=== PATIENT | male | born 1970 | race Caucasian/White ===

== ENCOUNTER 2022-10-06 08:11 | Emergency (ER) | payer SELFPAY ==
--- NOTE | 2022-10-06 08:29 | W.ED.NEUROSD ---
HPI - Neuro Symptoms/Deficit General: Chief Complaint: Neuro Symptoms/Deficit Stated Complaint: lt arm numb, confusion, tiredness Time Seen by Provider: 10/06/22 08:29 History of Present Illness: Mr. Gore is a 52-year-old gentleman presenting the emergency department for strokelike symptoms. He notes onset of symptoms acutely on the evening of 10/03. He had sudden onset of abnormal feeling with vomiting, confusion, possible syncope, and loss of urinary continence. Since that time he has felt generally unwell. He endorses confusion, unsteady gait, left arm sensory changes and left leg pain that he noticed today. Overall course of symptoms has persisted. Intensity is mild to moderate. No other specific changes in health, exacerbating, or alleviating factors identified. Onset (ago): day(s) History of same: No Relieving factors: none Exacerbating factors: none Review of Systems General: Reports: 10 or more systems reviewed and unremarkable except in HPI and below PFSH ED PFSH: Medical History (Updated 10/14/22 @ 00:00 by BROOK Bray) Bradycardia Social History (Updated 10/06/22 @ 08:39 by Amaury Colón MD) Smoking and tobacco status: current every day smoker Physical Exam Const: COMMON NORMALS: patient oriented x3 and alert GENERAL APPEARANCE: cooperative and well developed HENMT: COMMON NORMALS: normocephalic and atraumatic HEAD & SCALP: normocephalic and atraumatic Eye: COMMON NORMALS: conjunctivae normal CONJUNCTIVA: Yes conjunctivae normal SCLERA: sclerae normal Neck/C-Spine: COMMON NORMALS: supple GENERAL: Yes trachea midline Resp: COMMON NORMALS: normal respiratory effort and clear to auscultation bilaterally EFFORT & INSPECTION: Yes able to speak in complete sentences AUSCULTATION: clear to auscultation bilaterally Cardio: COMMON NORMALS: regular rate and regular rhythm RATE: regular rate RHYTHM: regular rhythm GI: COMMON NORMALS: Soft to palpation PALPATION: Yes Soft to palpation and No Tenderness to palpation present (GI) Extremity: GENERAL: Yes normal exam except as noted and No edema Neuro: COMMON NORMALS: patient oriented x3, CN's II-XII intact bilaterally, moves all extremities and no focal motor deficits SENSORIUM/ORIENTATION: Yes alert and No Orientation impaired Psych: COMMON NORMALS: mental status grossly normal and Normal thought process present THOUGHT PROCESS: Normal thought process present Course Vital Signs: Vital signs: Vital Signs Temperature 98.1 F 10/06/22 08:30 Pulse Rate 46 L 10/06/22 11:20 Respiratory Rate 10 L 10/06/22 11:20 Blood Pressure 156/93 10/06/22 11:20 Pulse Oximetry 99 10/06/22 11:20 Oxygen Delivery Me thod Room Air 10/06/22 08:30 MDM - Neuro Symptoms/Deficit Medical Decision Making 52-year-old gentleman presenting due to strokelike symptoms. Subjective sensory changes noted on exam. Patient is nontoxic. Patient is not a tPA candidate given duration of symptoms. EKG demonstrates sinus bradycardia with normal axis and other intervals, no STEMI. Labs with no leukocytosis, normal hemoglobin and platelet count. No acute metabolic abnormalities to explain symptoms. Negative range 2-hour delta troponin. No UTI, hematuria discussed with patient. CT head negative for evidence of stroke or hemorrhage, no masses identified. Patient treated with IV fluids and feels somewhat improved. Exact etiology of symptoms is somewhat unclear. Given duration of symptoms I would have expected plain head CT to show evidence of stroke of central process was responsible. The results of ED evaluation were discussed with the patient including prescriptions and/or symptomatic cares (if applicable) including appropriate and responsible use, followup plan, and return precautions. The patient verbalized understanding and felt safe for discharge. Medical Records I reviewed the patient's medical records. Lab Data I reviewed the patient's lab results. 10/06/22 08:41 10/06/22 08:[address] 10/06/22 08:36 IMPRESSION: NO ACUTE INTRACRANIAL CHANGE MILD ETHMOIDITIS Laboratory Results WBC 7.8 10^3/uL (4.0-10.0) 10/06/22 08:41 RBC 5.39 10^6/uL (4.1-5.3) H 10/06/22 08:41 Hgb 16.2 g/dL (11.7-16.6) 10/06/22 08:41 Hct 48.4 % (42.0-52.0) 10/06/22 08:41 MCV 89.8 fl (80-94) 10/06/22 08:41 MCH 30.1 pg (28.0-34.0) 10/06/22 08:41 MCHC 33.5 g/dL (30.0-36.0) 10/06/22 08:41 RDW 11.9 % (12.1-15.1) L 10/06/22 08:41 Plt Count 275 10^3/cmm (130-400) 10/06/22 08:41 MPV 10.4 fL (7.4-10.4) 10/06/22 08:41 Neut % (Auto) 74.9 % 10/06/22 08:41 Lymph % (Auto) 17.6 % 10/06/22 08:41 [place] % (Auto) 5.6 % 10/06/22 08:41 Eos % (Auto) 1.0 % 10/06/22 08:41 Baso % (Auto) 0.6 % 10/06/22 08:41 Neut # (Auto) 5.85 10^3/uL (1.8-7.7) 10/06/22 08:41 Lymph # (Auto) 1.4 10^3/uL (0.8-4.8) 10/06/22 08:41 [place] # (Auto) 0.4 10^3/uL (0.2-0.9) 10/06/22 08:41 Eos # (Auto) 0.1 10^3/uL (0.0-0.8) 10/06/22 08:41 Baso # (Auto) 0.1 10^3/uL (0.0-0.1) 10/06/22 08:41 Nucleated RBC % (auto) 0 % 10/06/22 08:41 Nucleated RBCs # 0.0 /100WBC 10/06/22 08:41 Sodium 138 mmol/L (136-145) 10/06/22 08:41 Potassium 4.5 mmol/L (3.5-5.1) 10/06/22 08:41 Chloride 104 mmol/L (98-107) 10/06/22 08:41 Carbon Dioxide 24 mmol/L (22-29) 10/06/22 08:41 Anion Gap 14.5 (5-19) 10/06/22 08:41 BUN 9 mg/dL (6-20) 10/06/22 08:41 Creatinine 0.8 mg/dL (0.7-1.2) 10/06/22 08:41 GFR Calculation 101.9 mL/min (90-130) 10/06/22 08:41 Glucose 98 mg/dL (65-115) 10/06/22 08:41 POC Glucose 111 mg/dL (70-110) H 10/06/22 08:46 Calculated Osmolality 285 mOsm/kg (285-295) 10/06/22 08:41 Calcium 9.9 mg/dL (8.5-10.5) 10/06/22 08:41 Total Bilirubin 0.4 mg/dL (0.15-1.2) 10/06/22 08:41 AST 17 U/L (0-40) 10/06/22 08:41 ALT 24 U/L (0-41) 10/06/22 08:41 Alkaline Phosphatase 100 U/L (40-130) 10/06/22 08:41 Troponin T Baseline 10 ng/L (0-15) 10/06/22 08:41 Troponin T 120 Minute 9.42 ng/L (0-15) 10/06/22 10:32 Delta Troponin T -0.58 ABS# (0-10) L 10/06/22 10:32 Total Protein 7.1 g/dL (6.6-8.7) 10/06/22 08:41 Albumin 4.7 g/dL (3.5-5.2) 10/06/22 08:41 Globulin 2.4 g/dL (1.3-4.6) 10/06/22 08:41 TSH 0.94 uIU/mL (0.27-4.20) 10/06/22 08:41 Urine Color Yellow (Yellow) 10/06/22 09:47 Urine Appearance Clear (CLEAR) 10/06/22 09:47 Urine pH 7 (5-7) 10/06/22 09:47 Ur Specific [place] 1.015 (1.005-1.030) 10/06/22 09:47 Urine Protein Neg (Negative) 10/06/22 09:47 Urine Glucose (UA) Norm (Normal) 10/06/22 09:47 Urine Ketones Negative (Negative) 10/06/22 09:47 Urine Blood 2+ (Negative) H 10/06/22 09:47 Urine Nitrate Negative (Negative) 10/06/22 09:47 Urine Bilirubin Neg (Negative) 10/06/22 09:47 Urine Urobilinogen Norm mg/dL (Negative) 10/06/22 09:47 Ur Leukocyte Esterase Negative (Negative) 10/06/22 09:47 Urine RBC 0-4 /hpf (0-2) H 10/06/22 09:47 Urine WBC 0-4 /hpf (0-5) H 10/06/22 09:47 Ur Squamous Epith Cells None /hpf (0-5) 10/06/22 09:47 Amorphous Sediment Not Reportable 10/06/22 09:47 Urine Bacteria None /hpf (NONE) 10/06/22 09:47 Urine Mucus None /hpf 10/06/22 09:47 SARS-CoV-2 Ag (Rapid) Negative (Negative) 10/06/22 09:15 Discharge Plan Discharge Patient Disposition: Home Clinical Impression: Paresthesia, Malaise and fatigue Condition: Stable Prescriptions: No Action aspirin 325 mg Tablet 650 mg PO .ONE TIME DOSE Discharge Orders: Discharge ED (Routine); Ordered 10/06/22 Ordered By: Amaury Colón Other Ambulatory Orders: ECG holter monitor 7 Days (Routine) Timeframe: 3 Days Facility: [facility] - Location: Radiology Ordered By: Amaury Colón Discharge Diet: Usual diet Discharge Activity: Resume usual activity Patient Instructions: Paresthesia (ED), Lightheadedness (ED) Activity Restrictions/Additional Instructions: Thank you for visiting the emergency department. You were seen evaluated for generalized illness and paresthesias. The exact cause of your symptoms is unclear however does not appear to need hospitalization at this time. Please follow-up with your primary care provider. Please ensure that you are resting and staying hydrated. Return to the emergency department for recurrent symptoms, any new neurologic symptoms, or anything else that you are concerned about and feel needs emergency department evaluation Coding Level of Care Code ED Patient Financial Advocate for Zurdo Dumas
[2022-10-06 08:30] VITALS: BP 173/109; PULSE 60; TEMP 36.7; O2SAT 100; BMI 37.4
--- NOTE | 2022-10-06 08:36 | CT_ITS ---
WS: [id number] EXAMINATION: CT head wo con* 12711 REASON FOR EXAM: stroke like symptoms, L arm and leg sensory, unsteady COMPARISON: None available. ORDER DATE: 10/06/2022 8:57 AM TOTAL EXAM DLP: 1160.[address] scans at [facility] use at least one of these dose optimization techniques: automated ex posure control; mA and/or kV adjustment per patient size (includes targeted exams where dose is match ed to clinical indication); or iterative reconstruction. TECHNIQUE: AXIAL IMAGING WITH 2-D REFORMATS WITHOUT CONTRAST FINDINGS: Extra axial spaces: Normal in size and morphology for the patient's age.. Hemorrhage: No evidence of subarachnoid hemorrhage. Ventricular system: Normal in size and morphology for the patient's age.. Basal cisterns: The basilar cisterns are patent.. Cerebral parenchyma: [place]-white matter differentiation is maintained.. Midline shift: No midline shift or mass effect. . Cerebellum: Normal. Brainstem: Normal. ORBITS/FACIAL BONES/OTHER: Calvarium: Intact. Vascular system: Normal. Visualized Paranasal sinuses: Minor generalized mucosal thickening and infiltrate in the posterior et hmoidal sinuses. Visualized Orbits and facial bones: Normal. Visualized upper cervical spine: Normal. Sella and skull base: Grossly intact. CT/CT head wo con* 04016 IMPRESSION: NO ACUTE INTRACRANIAL CHANGE MILD ETHMOIDITIS
--- NOTE | 2022-10-06 08:40 | ECG_ITS ---
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 Measurements Intervals [place] Rate: 53 P: 15 [place]: 195 QRS: 56 QRSD: 93 T: 59 QT: 400 QTc: 377 Interpretive Statements SINUS BRADYCARDIA No previous ECG available for comparison Electronically Signed On 10-06-2022 9:46:41 CDT by Oscar Stover M.D. [email or web address]/[id number]
--- NOTE | 2022-10-06 08:44 | PC.PHAR ---
pt states he takes no rx medications-ext med history doesnt show anything filled-pt states he took a one time dose of aspirin yesterday 10/05/22
[2022-10-06 08:52] LABS: Glucose Point of Care 111 mg/dL (70-110)
[2022-10-06 08:54] LABS: Basophils # 0.1 10^3/uL (0.0-0.1); Basophils % 0.6 %; Eosinophils # 0.1 10^3/uL (0.0-0.8); Hematocrit 48.4 % (42.0-52.0); Hemoglobin 16.2 g/dL (11.7-16.6); Lymphocytes # 1.4 10^3/uL (0.8-4.8); Lymphocytes % 17.6 %; Mean Corpuscular HGB Conc 33.5 g/dL (30.0-36.0); Mean Corpuscular Hemoglobin 30.1 pg (28.0-34.0); Mean Corpuscular Volume 89.8 fl (80-94); Mean Platelet Volume 10.4 fL (7.4-10.4); Monocytes # 0.4 10^3/uL (0.2-0.9); Monocytes % 5.6 %; Neutrophils # 5.85 10^3/uL (1.8-7.7); Neutrophils % 74.9 %; Nucleated Red Blood Cells % 0 %; Platelet Count 275 10^3/cmm (130-400); Red Blood Count 5.39 10^6/uL (4.1-5.3); Red Cell Distribution Width 11.9 % (12.1-15.1); White Blood Count 7.8 10^3/uL (4.0-10.0)
[2022-10-06] MEDS: sodium chloride 0.9% 1,000 ML 999 ML IV (09:08)
[2022-10-06 09:19] LABS: Troponin(5th) Baseline 10 ng/L (0-15)
[2022-10-06 09:26] LABS: Alanine Aminotransferase 24 U/L (0-41); Albumin Level 4.7 g/dL (3.5-5.2); Alkaline Phosphatase 100 U/L (40-130); Anion Gap 14.5 (5-19); Aspartate Amino Transferase 17 U/L (0-40); Blood Urea Nitrogen 9 mg/dL (6-20); Calcium 9.9 mg/dL (8.5-10.5); Carbon Dioxide 24 mmol/L (22-29); Chloride 104 mmol/L (98-107); Globulin 2.4 g/dL (1.3-4.6); Glomerular Filtration Rate 101.9 mL/min (90-130); Glucose 98 mg/dL (65-115); Osmolality Calculated 285 mOsm/kg (285-295); Potassium 4.5 mmol/L (3.5-5.1); Sodium 138 mmol/L (136-145); Thyroid Stimulating Hormone 0.94 uIU/mL (0.27-4.20); Total Bilirubin 0.4 mg/dL (0.15-1.2); Total Protein 7.1 g/dL (6.6-8.7)
[2022-10-06 09:36] VITALS: BP 156/93; PULSE 47; RESP 10; O2SAT 100
[2022-10-06 09:41] VITALS: BP 148/76; BP 156/93; BP 165/95; PULSE 51; PULSE 56; PULSE 61
[2022-10-06 10:07] LABS: Add Urine Microscopic? YES; Bilirubin Urine Neg (Negative); Blood Urine 2+ (Negative); Glucose Urine UA Norm (Normal); Ketones Urine Negative (Negative); Leukocyte Esterase Urine Negative (Negative); Nitrate Urine Negative (Negative); Protein Urine Neg (Negative); Specific Gravity, Urine 1.015 (1.005-1.030); Urine Appearance Clear (CLEAR); Urine Color Yellow (Yellow); Urobilinogen Urine Norm (Negative); pH Urine 7 (5-7)
[2022-10-06 10:10] LABS: RBC Urine 0-4 /hpf (0-2); WBC Urine 0-4 /hpf (0-5)
[2022-10-06 10:11] LABS: Add Urine Culture? No
[2022-10-06 10:15] LABS: SARS Covid-2 Antigen Negative (Negative)
--- NOTE | 2022-10-06 10:48 | ECG_ITS ---
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 Measurements Intervals [place] Rate: 53 P: -1 [place]: 191 QRS: 51 QRSD: 91 T: 56 QT: 414 QTc: 392 Interpretive Statements SINUS BRADYCARDIA Compared to ECG 10/06/2022 08:48:38 No significant changes Electronically Signed On 10-06-2022 12:29:58 CDT by Oscar Stover M.D. [id number]
[2022-10-06 10:54] LABS: Troponin 5 2HR 9.42 ng/L (0-15)
[2022-10-06 11:12] LABS: Troponin 5 2HR Delta -0.58 ABS# (0-10)
[2022-10-06 11:20] VITALS: BP 156/93; PULSE 46; RESP 10; O2SAT 99
--- NOTE | 2022-10-06 14:40 | PC.SOCIAL ---
Addendum entered by Salud Evans 11/09/22 14:48: manager financial received a message from centralized scheduling stating that patient did not want the test scheduled at this time. Original Note: PCP Appt Established at [facility] in [place]; tomorrow at 1040 with YAA Frederick. Echo orders faxed to [facility]. Scheduling at this time with results to YAA Frederick.
== END 2022-10-06 11:21 | disposition home or self-care (01) ==
PROVIDERS: Emergency Provider Emergency Medicine
DX: R20.2 Paresthesia of skin (principal); R53.81 Other malaise; R53.83 Other fatigue; R31.9 Hematuria, unspecified; R00.1 Bradycardia, unspecified
CPT/HCPCS: 36415; 36416; 70450; 80053; 81001; 82962; 84443; 84484; 85025; 87426; 93005; 99285; J7030

== ENCOUNTER 2022-11-01 13:15 | Emergency (ER) | payer SELFPAY ==
[2022-11-01 13:32] VITALS: BP 181/95; PULSE 58; RESP 16; TEMP 36.6; O2SAT 95; BMI 37.4
--- NOTE | 2022-11-01 13:42 | XR_ITS ---
WS: [id number] Exam: XR chest 1V portable [id number] Date/Time of Exam: 11/01/2022 1:44 PM Reason For Exam: chest pain No priors. The lungs are clear and fully expanded. Heart size top limits normal. The mediastinum is normal in co ntour. No pleural effusions. Regional bony elements are intact. XR/XR chest 1V portable [id number] IMPRESSION: 1. No acute cardiopulmonary process.
--- NOTE | 2022-11-01 13:42 | ECG_ITS ---
[facility] Test Date: 2022-11-01 Pat Name: Chava Gore Department: Room: Gender: Male Medical Office Scheduler: : 1970 Requested By: Von Latham Order Number: [id number] Gabriella MD: Hardeep Koo M.D. Measurements Intervals [place] Rate: 58 P: -15 [place]: 181 QRS: 29 QRSD: 96 T: 39 QT: 382 QTc: 377 Interpretive Statements SINUS BRADYCARDIA Compared to ECG 10/06/2022 10:48:03 No significant changes Electronically Signed On 11-01-2022 21:38:36 CDT by Hardeep Koo M.D. [email or web address].[employer]/store/[id number]
[2022-11-01 14:08] VITALS: BP 158/92; PULSE 51; RESP 13; O2SAT 97
--- NOTE | 2022-11-01 14:12 | ED_ITS ---
HPI - Chest Pain General: Chief Complaint: Chest Pain Stated Complaint: sent by dr alvarado/chest pains/seizure 10/29 Time Seen by Provider: 11/01/22 13:42 History of Present Illness: Patient presents to the ER with complaints of seizure at his primary care office clinic on Tuesday. Patient said at that time he had his labs drawn, his heart rate was 38 he had a seizure and lost his bladder. Patient stated since then has been super slow and tired and fatigued he has had chest pains at times it is reproducible with palpation. This pain moves. It hurts to the touch. Patient did start taking 1 baby aspirin since then. Patient has had 2 possible seizures in the past. Patient does not technically have a diagnosis of epilepsy and is not on antiseizure medicine. Patient is not currently having chest pain at this time. Review of Systems General: Reports: 10 or more systems reviewed and unremarkable except in HPI and below PFSH ED PFSH: Medical History Bradycardia Social History Smoking and tobacco status: current every day smoker Physical Exam Const: COMMON NORMALS: no acute distress, average body habitus, patient oriented x3, no limitations, healthy appearing, alert and well nourished HENMT: COMMON NORMALS: normocephalic, atraumatic, hearing grossly normal bilaterally, external ears normal, Normal external nose present and moist oral mucous membranes HEAD & SCALP: normocephalic and atraumatic NOSE: Normal external nose present EXTERNAL EAR: Yes external ears normal Neck/C-Spine: COMMON NORMALS: full ROM, no lymphadenopathy, supple, no meningeal signs, no JVD and Thyroid normal THYROID: Thyroid normal Chest: COMMONS NORMALS: normal inspection of the chest and normal palpation of entire chest wall Resp: COMMON NORMALS: normal respiratory effort, No retractions, No use of acc essory muscles and clear to auscultation bilaterally AUSCULTATION: clear to auscultation bilaterally Cardio: COMMON NORMALS: no JVD, regular rate, regular rhythm, S1 normal heart sound present, No gallops present (Cardio), No clicks present (Cardio) and No murmurs present (Cardio) RATE: regular rate RHYTHM: regular rhythm HEART SOUNDS: S1 normal heart sound present GI: COMMON NORMALS: Normal to inspection, nondistended, normoactive bowel sounds present, Soft to palpation, non-tender and No hepatosplenomegaly present PALPATION: Yes Soft to palpation and Yes No hepatosplenomegaly present Neuro: COMMON NORMALS: patient oriented x3 SENSORIUM/ORIENTATION: Yes alert MENINGEAL SIGNS: Yes no meningeal signs Course Vital Signs: Vital signs: Vital Signs Temperature 97.9 F 11/01/22 13:32 Pulse Rate 57 L 11/01/22 15:30 Respiratory Rate 13 11/01/22 15:30 Blood Pressure 133/80 11/01/22 15:30 Pulse Oximetry 97 11/01/22 15:30 Oxygen Delivery Me thod Room Air 11/01/22 14:08 MDM - Chest Pain Medical Decision Making Patient presents to the ER with complaints of seizure 3 days ago has not felt right since then. Patient has had intermittent left-sided chest pain since then but is not having pain at this time. Patient was worked up in a normal chest pain like fashion along with a prolactin. All of which essentially were benign. Patient did not have chest pain during his time here to ER. Patient will be discharged to follow-up with his primary care practitioner for further evaluation and treatment. Differential Diagnosis Unlikely acute massive pulmonary embolism, acute respiratory failure, acute myocardial infarction, cardiac arrest or sudden cardiac Medical Records I reviewed the patient's medical records. Lab Data I reviewed the patient's lab results. 11/01/22 14:15 11/01/22 14:15 Radiology Impressions Chest X-Ray 11/01/22 13:42 IMPRESSION: 1. No acute cardiopulmonary process. Laboratory Results WBC 6.7 10^3/uL (4.0-10.0) 11/01/22 14:15 RBC 5.01 10^6/uL (4.1-5.3) 11/01/22 14:15 Hgb 15.1 g/dL (11.7-16.6) 11/01/22 14:15 Hct 45.5 % (42.0-52.0) 11/01/22 14:15 MCV 90.8 fl (80-94) 11/01/22 14:15 MCH 30.1 pg (28.0-34.0) 11/01/22 14:15 MCHC 33.2 g/dL (30.0-36.0) 11/01/22 14:15 RDW 12.1 % (12.1-15.1) 11/01/22 14:15 Plt Count 210 10^3/cmm (130-400) 11/01/22 14:15 MPV 10.8 fL (7.4-10.4) H 11/01/22 14:15 Neut % (Auto) 61.8 % 11/01/22 14:15 Lymph % (Auto) 28.0 % 11/01/22 14:15 [place] % (Auto) 7.4 % 11/01/22 14:15 Eos % (Auto) 1.8 % 11/01/22 14:15 Baso % (Auto) 0.9 % 11/01/22 14:15 Neut # (Auto) 4.16 10^3/uL (1.8-7.7) 11/01/22 14:15 Lymph # (Auto) 1.9 10^3/uL (0.8-4.8) 11/01/22 14:15 [place] # (Auto) 0.5 10^3/uL (0.2-0.9) 11/01/22 14:15 Eos # (Auto) 0.1 10^3/uL (0.0-0.8) 11/01/22 14:15 Baso # (Auto) 0.1 10^3/uL (0.0-0.1) 11/01/22 14:15 Nucleated RBC % (auto) 0 % 11/01/22 14:15 Nucleated RBCs # 0.0 /100WBC 11/01/22 14:15 PT 12.60 SECONDS (12.1-14.9) 11/01/22 14:15 INR 0.92 (0.8-1.2) 11/01/22 14:15 Sodium 135 mmol/L (136-145) L 11/01/22 14:15 Potassium 4.3 mmol/L (3.5-5.1) 11/01/22 14:15 Chloride 104 mmol/L (98-107) 11/01/22 14:15 Carbon Dioxide 20 mmol/L (22-29) L 11/01/22 14:15 Anion Gap 15.3 (5-19) 11/01/22 14:15 BUN 8 mg/dL (6-20) 11/01/22 14:15 Creatinine 0.7 mg/dL (0.7-1.2) 11/01/22 14:15 GFR Calculation 118.9 mL/min (90-130) 11/01/22 14:15 Glucose 79 mg/dL (65-115) 11/01/22 14:15 Calculated Osmolality 277 mOsm/kg (285-295) L 11/01/22 14:15 Calcium 9.4 mg/dL (8.5-10.5) 11/01/22 14:15 Magnesium 2.0 mg/dL (1.7-2.3) 11/01/22 14:15 Total Bilirubin 0.4 mg/dL (0.15-1.2) 11/01/22 14:15 AST 17 U/L (0-40) 11/01/22 14:15 ALT 26 U/L (0-41) 11/01/22 14:15 Alkaline Phosphatase 81 U/L (40-130) 11/01/22 14:15 Troponin T Baseline 6 ng/L (0-15) 11/01/22 14:15 Troponin T 120 Minute 6.00 ng/L (0-15) 11/01/22 16:22 Total Protein 6.4 g/dL (6.6-8.7) L 11/01/22 14:15 Albumin 4.4 g/dL (3.5-5.2) 11/01/22 14:15 Globulin 2.0 g/dL (1.3-4.6) 11/01/22 14:15 Prolactin 5.94 ng/mL (4.0-15.2) 11/01/22 14:15 Urine Color Yellow (Yellow) 11/01/22 13:47 Urine Appearance Clear (CLEAR) 11/01/22 13:47 Urine pH 6 (5-7) 11/01/22 13:47 Ur Specific [place] 1.015 (1.005-1.030) 11/01/22 13:47 Urine Protein Neg (Negative) 11/01/22 13:47 Urine Glucose (UA) Norm (Normal) 11/01/22 13:47 Urine Ketones Negative (Negative) 11/01/22 13:47 Urine Blood 2+ (Negative) H 11/01/22 13:47 Urine Nitrate Negative (Negative) 11/01/22 13:47 Urine Bilirubin Neg (Negative) 11/01/22 13:47 Urine Urobilinogen Norm mg/dL (Negative) 11/01/22 13:47 Ur Leukocyte Esterase Negative (Negative) 11/01/22 13:47 Urine RBC 0-4 /hpf (0-2) H 11/01/22 13:47 Urine WBC 0-4 /hpf (0-5) H 11/01/22 13:47 Ur Squamous Epith Cells None /hpf (0-5) 11/01/22 13:47 Amorphous Sediment Not Reportable 11/01/22 13:47 Urine Bacteria Trace /hpf (NONE) 11/01/22 13:47 Urine Mucus 2+ /hpf 11/01/22 13:47 Urine Opiates Screen Negative ng/mL (Negative) 11/01/22 13:47 Ur Barbiturates Screen Negative ng/mL (Negative) 11/01/22 13:47 Ur Phencyclidine Scrn Negative ng/mL (Negative) 11/01/22 13:47 Ur Amphetamines Screen Negative ng/mL (Negative) 11/01/22 13:47 U Benzodiazepines Scrn Negative ng/mL (Negative) 11/01/22 13:47 Urine Cocaine Screen Negative ng/mL (Negative) 11/01/22 13:47 U Marijuana (THC) Screen Positive ng/mL (Negative) H 11/01/22 13:47 EKG Data EKG 1: I personally reviewed and interpreted this EKG as follows: EKG interpretation date: 11/01/22 EKG interpretation time: 13:25 Prior EKG tracings: not available for review Interpretation: EKG showed ventricular rate of 58 bpm, SD interval 181, QRS 96, QTc 377, sinus bradycardia no ST-T wave changes EKG 2: I personally reviewed and interpreted this EKG as follows: EKG interpretation date: 11/01/22 EKG interpretation time: 15:45 Prior EKG tracings: available for review Interpretation: EKG showed ventricular rate 54 bpm, SD interval 183, QRS duration 100, QTc 396, sinus bradycardia, no ST-T wave changes Discharge Plan Discharge Patient Disposition: Home Clinical Impression: Atypical chest pain, Seizure-like activity Condition: Stable Prescriptions: No Action Aspir-81 81 mg Tablet,Delayed Release (Dr/Ec) 81 mg PO DAILY Discharge Orders: Discharge ED (Routine); Ordered 11/01/22 Ordered By: Von Latham Referrals: Claus Alvarado MD [Primary Care Provider] - 1 week Patient Instructions: Chest Pain - Noncardiac Activity Restrictions/Additional Instructions: All of your work-up was essentially unremarkable. Please follow-up with your family practice provider for further evaluation and treatment. Please return to the ER if your symptoms worsen or return. Coding Level of Care Code ED Merchandise Flow Associate for Zurdo Dumas
[2022-11-01 14:30] VITALS: BP 123/83; PULSE 55; RESP 13; O2SAT 96
[2022-11-01 14:33] LABS: Basophils # 0.1 10^3/uL (0.0-0.1); Basophils % 0.9 %; Eosinophils # 0.1 10^3/uL (0.0-0.8); Eosinophils % 1.8 %; Hematocrit 45.5 % (42.0-52.0); Hemoglobin 15.1 g/dL (11.7-16.6); Lymphocytes # 1.9 10^3/uL (0.8-4.8); Mean Corpuscular HGB Conc 33.2 g/dL (30.0-36.0); Mean Corpuscular Hemoglobin 30.1 pg (28.0-34.0); Mean Corpuscular Volume 90.8 fl (80-94); Mean Platelet Volume 10.8 fL (7.4-10.4); Monocytes # 0.5 10^3/uL (0.2-0.9); Monocytes % 7.4 %; Neutrophils # 4.16 10^3/uL (1.8-7.7); Neutrophils % 61.8 %; Nucleated Red Blood Cells % 0 %; Platelet Count 210 10^3/cmm (130-400); Red Blood Count 5.01 10^6/uL (4.1-5.3); Red Cell Distribution Width 12.1 % (12.1-15.1); White Blood Count 6.7 10^3/uL (4.0-10.0)
[2022-11-01 14:38] LABS: Amphetamines Screen Urine Negative (Negative); Barbiturates Screen Urine Negative (Negative); Benzodiazepines Screen Urine Negative (Negative); Cocaine Screen Urine Negative (Negative); Opiate Screen Urine Negative (Negative); PCP Screen Urine Negative (Negative); THC Screen Urine Positive (Negative)
[2022-11-01 14:40] LABS: Add Urine Culture? No; Add Urine Microscopic? YES; Bacteria Urine TRACE /hpf; Bilirubin Urine Neg (Negative); Blood Urine 2+ (Negative); Glucose Urine UA Norm (Normal); Ketones Urine Negative (Negative); Leukocyte Esterase Urine Negative (Negative); Mucus Urine 2+ /hpf; Nitrate Urine Negative (Negative); Protein Urine Neg (Negative); RBC Urine 0-4 /hpf (0-2); Specific Gravity, Urine 1.015 (1.005-1.030); Urine Appearance Clear (CLEAR); Urine Color Yellow (Yellow); Urobilinogen Urine Norm (Negative); WBC Urine 0-4 /hpf (0-5); pH Urine 6 (5-7)
[2022-11-01 14:45] LABS: INR 0.92 (0.8-1.2)
[2022-11-01 14:53] LABS: Troponin(5th) Baseline 6 ng/L (0-15)
[2022-11-01 15:18] LABS: Alanine Aminotransferase 26 U/L (0-41); Albumin Level 4.4 g/dL (3.5-5.2); Alkaline Phosphatase 81 U/L (40-130); Blood Urea Nitrogen 8 mg/dL (6-20); Calcium 9.4 mg/dL (8.5-10.5); Carbon Dioxide 20 mmol/L (22-29); Chloride 104 mmol/L (98-107); Glomerular Filtration Rate 118.9 mL/min (90-130); Glucose 79 mg/dL (65-115); Osmolality Calculated 277 mOsm/kg (285-295); Prolactin 5.94 ng/mL (4.0-15.2); Sodium 135 mmol/L (136-145); Total Bilirubin 0.4 mg/dL (0.15-1.2); Total Protein 6.4 g/dL (6.6-8.7)
[2022-11-01 15:27] LABS: Anion Gap 15.3 (5-19); Aspartate Amino Transferase 17 U/L (0-40); Potassium 4.3 mmol/L (3.5-5.1)
[2022-11-01 15:30] VITALS: BP 133/80; PULSE 57; RESP 13; O2SAT 97
--- NOTE | 2022-11-01 15:42 | ECG_ITS ---
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 Measurements Intervals [place] Rate: 54 P: -10 [place]: 183 QRS: 27 QRSD: 100 T: 45 QT: 410 QTc: 390 Interpretive Statements SINUS BRADYCARDIA Compared to ECG 11/01/2022 13:25:49 No significant changes Electronically Signed On 11-01-2022 21:52:09 CDT by Hardeep Koo M.D. [email or web address] [email or web address]/store/[id number]
[2022-11-01 16:54] LABS: Troponin 5 2HR Delta 0 ABS# (0-10)
[2022-11-01 17:00] VITALS: RESP 22; O2SAT 98
== END 2022-11-01 17:01 | disposition home or self-care (01) ==
PROVIDERS: Emergency Provider Emergency Medicine; PCP Pediatrics
DX: R07.89 Other chest pain (principal); R56.9 Unspecified convulsions; Z79.82 Long term (current) use of aspirin; F17.210 Nicotine dependence, cigarettes, uncomplicated
CPT/HCPCS: 36415; 71045; 80053; 80306; 81001; 83735; 84146; 84484; 85025; 85610; 93005; 99285